=== PATIENT | female | born 1980 | race Caucasian/White ===

== ENCOUNTER 2018-04-19 20:21 | Emergency (ER) | payer OTHER ==
[2018-04-19 20:37] VITALS: BP 165/77; PULSE 76; TEMP 98.2; BMI 29.7
--- NOTE | 2018-04-19 23:01 | PDOC ---
History of Present Illness - General Chief Complaint: Pain Stated Complaint: ROOM 7 Time Seen by Provider: 04/19/18 21:29 History Source: Patient Exam Limitations: No Limitations - History of Present Illness Initial Comments: 37 yo F w a pmh of allergies and anxiety who presents to the ER with LLQ abdominal pain. The pain began last night at 4 am. She is not currently experiencing her abdominal pain. She describes the pain as sharp in quality and rates it as 3/10 in intensity. This has never happened in the past. The pain occasionally radiates to her back but does not radiate to her groin. She denies any associated symptoms such as dysuria, frequency, urgency, hematuria, diarrhea , constipation, nausea, vomiting, fevers, chills, or infections. She has not taken any medication for the pain, however she had an unrelated headache this morning and took tylenol for it. Patient is currently on her menstrual period. She says her periods usually last 7 days and she is currently on day 6 of 7. She has a rash on her chest which she says is allergic in nature and she gets often. She denies recent travel, ankle or wrist swelling, chest pain, SOB, difficulty breathing, joint pain, sleep changes, appetite changes, or dizziness. PCP: Khanh Arrington Allergies: Clindamycin, sulfa, Penicillins Social Hx: Denies smoking, drinking or other substance usage. PSH: Tubal ligation Past History - Past Medical History Allergies/Adverse Reactions: Allergies Allergy/AdvReac Type Severity Reaction Status Date / Time clindamycin Allergy Severe Rash Verified 04/19/18 22:34 Penicillins Allergy Verified 04/19/18 22:34 Sulfa (Sulfonamide Allergy Verified 04/19/18 22:34 Antibiotics) Home Medications: Ambulatory Orders NK [No Known Home Medication] 04/19/18 COPD: No Psychiatric Problems: Yes (anxiety) - Immunization History Immunization Up to Date: Yes - Suicide/Smoking/Psychosocial Hx Smoking History: Never smoked Have you smoked in the past 12 months: No Number of Cigarettes Smoked Daily: 1 Information on smoking cessation initiated: No Hx Alcohol Use: No Drug/Substance Use Hx: No Substance Use Type: None Review of Systems - Review of Systems Able to Perform ROS?: Yes Comments:: CONSTITUTIONAL: Absent: fever, no chills, no fatigue EYES: Absent: visual changes ENT: Absent: ear pain, no sore throat CARDIOVASCULAR: Absent: chest pain, no palpitations RESPIRATORY: Absent: cough, no SOB GI: Present: Abdominal pain Absent: no nausea, no vomiting, no constipation, no diarrhea GENITOURINARY: Absent: dysuria, no frequency, no hematuria MUSKULOSKELETAL: Present: Back pain Absent: no arthralgia, no myalgia SKIN: Absent: rash NEURO: Absent: headache *Physical Exam - Vital Signs Last Vital Signs Temp Pulse Resp BP Pulse Ox 98.2 F 76 18 165/77 100 04/19/18 20:35 04/19/18 20:35 04/19/18 20:35 04/19/18 20:35 04/19/18 20:35 - Physical Exam Comments: GENERAL: Well-appearing, well-nourished. No apparent distress. HEENT: Normocephalic, atraumatic. PERRL, EOM intact. CARDIOVASCULAR: Normal S1, S2. Regular rate and rhythm. PULMONARY: Clear to auscultation bilaterally. ABDOMEN: Soft, non-distended, non-tender. EXTREMITIES: Normal ROM in all four extremities. No gross deformities. SKIN: Warm, dry. No rash NEUROLOGICAL: No focal neurological deficits. Female Pelvic Exam: positive: cervical os closed, normal adnexa, discharge ( blood in vaginal vault), vaginal bleeding. negative: CMT, lesions, Bartholin mass, Scalene Gland, adnexal tenderness Moderate Sedation - Procedure Monitoring Vital Signs: Procedure Monitoring Vital Signs Temperature 98.2 F 04/19/18 20:35 Pulse Rate 76 04/19/18 20:35 Respiratory Rate 18 04/19/18 20:35 Blood Pressure 165/77 04/19/18 20:35 O2 Sat by Pulse Oximetry (%) 100 04/19/18 20:35 Medical Decision Making - Medical Decision Making 37 yo F w a pmh of allergies and anxiety who presents to the ER with LLQ abdominal pain. The pain began last night at 4 am. She is not currently experiencing her abdominal pain. She describes the pain as sharp in quality and rates it as 3/10 in intensity. This has never happened in the past. The pain occasionally radiates to her back but does not radiate to her groin. She denies any associated symptoms such as dysuria, frequency, urgency, hematuria, diarrhea , constipation, nausea, vomiting, fevers, chills, or infections. She has not taken any medication for the pain, however she had an unrelated headache this morning and took tylenol for it. - Patient is currently on her period. DDx IBNLT: kidney stones, uti, middleshmertz, vs ectopic, pylo, diverticulitis. Plan: UA, Hcg, re-assess. - Patient is very well appearing and has minimal abdominal TTP. - This is likely period related pain. Will DC with pcp and slat twister fu *DC/Admit/Observation/Transfer Diagnosis at time of Disposition: Period pain - Discharge Dispostion Disposition: HOME Condition at time of disposition: Stable Decision to Admit order: No - Referrals Referrals: Khanh Arrington MD [Primary Care Provider] - - Patient Instructions Printed Discharge Instructions: Painful Menstrual Periods Additional Instructions: You came into the ER with left sided lower abdominal pain. We looked at your urine which had a significant amount of blood in it. We believe your pain is related to your menstrual period. Take motrin, ibuprofen, advil for pain control. 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 Come back to the ER if your pain worsens, you start vomiting, have a fever, or any other new or worsening concerns. Thank you for coming to the [facility] ER. We hope you feel better soon! Print Language: TRINIDADIAN - Post Discharge Activity
[2018-04-19 23:03] LABS: URINE APPEARANCE SLCLOUDY; URINE BILIRUBIN NEGATIVE (<2.0 mg/dL); URINE COLOR LTYELLOW; URINE GLUCOSE (UA) NEGATIVE (NEGATIVE); URINE KETONE NEGATIVE (NEGATIVE); URINE LEUK ESTERASE NEGATIVE (NEGATIVE); URINE NITRITE NEGATIVE (NEGATIVE); URINE PROTEIN NEGATIVE (NEGATIVE); URINE UROBILINOGEN NEGATIVE mg/dL (0.2-1.0)
[2018-04-19 23:05] LABS: HCG,QUALITATIVE URINE Negative
[2018-04-19 23:23] LABS: EPI CELLS FEW /HPF (FEW); URINE MUCUS RARE
--- NOTE | 2018-04-19 23:43 | PDOC ---
Attending Attestation - Resident Resident Name: Jorge Quevedo - ED Attending Attestation I have performed the following: I have examined & evaluated the patient, The case was reviewed & discussed with the resident, I agree w/resident's findings & plan - HPI HPI: 04/19/18 23:38 37 yo F w a pmh of allergies and anxiety who presents to the ER with Left pelvic pain since last night 4am, intermittent. no urinary sx. no n/v/d, bowel or bladder changes. no f/c. LMP 1 week ago, on day 6 of menses now. notes last month cycle with heavy menses. has been taking tylenol for pain, with some relief currently asymptomatic.. 04/19/18 23:38 04/19/18 23:40 - Physicial Exam PE: 04/19/18 23:39 NAD, well appearing, PERRL, EOMI, MMM, nl conjunctiva, anicteric; neck supple. lungs clear, RRR, abdomen soft nontender. no CVAT. ZHAO x4, no focal neuro deficits. No peripheral edema. normal color for ethnicity, WWP. pelvic exam with resident, normal external genitalia, no lesions, scant blood vaginal vault, no CMT, no adnexal tenderness. Smooth and pink cervix, closed. 04/19/18 23:40 - Medical Decision Making 04/19/18 23:39 DDx female abdominal pain: ovarian cyst, ovarian torsion, TOA, diverticulosis/ itis, UTI, pyelonephritis, Mittelschmerz, menstrual cramps. vitals wnl, no fever abdomen soft, NTND, no CVAT to suggest renal pathology/stone. doubt diverticulitis, w/o LLQ pain pelvic exam wnl on menses, so likely cramp/pain with menses. UA neg for infection, +blood as expected. f/u urine cx. no urinary sx, so doubting UTI/infection now. neg preg test. 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 04/19/18 23:42 04/19/18 23:43
== END 2018-04-20 00:13 | disposition home or self-care (01) ==
LOC: JER 20:21
DX: N94.6 Dysmenorrhea, unspecified (principal); F41.9 Anxiety disorder, unspecified
CPT/HCPCS: 81003; 81015; 84703; 99282-25